=== PATIENT | female | born 1980 | race Hispanic/Latino ===

== ENCOUNTER 2017-06-22 14:36 | Emergency (ER) | payer OTHER ==
--- NOTE | 2017-06-22 16:54 | Emergency Department Report ---
Chief Complaint: Urogenital-Female Stated Complaint: VAGINAL PAIN Time Seen by Provider: 06/22/17 16:37 - HPI History of Present Illness: Patient is a 37-year-old female who is presenting with dysuria vaginal discharge urinary frequency and a foul odor to her urine has been present for the past 3 days. Patient has mild pelvic pain. Patient denies any fever nausea vomiting at this time. Patient states the pain is probably a 4 out of 10 and crampy - ROS Review of Systems: Review of systems is negative except for those elements in HPI - Exam Vital Signs: Vital Signs 06/22/17 14:41 Temperature 97.7 F Pulse Rate 106 H Respiratory 18 Rate Blood Pressure 111/73 O2 Sat by Pulse 97 Oximetry Physical Exam: Focused physical exam shows some mild suprapubic tenderness MSE screening note: Focused history and physical exam performed. Due to findings the following was ordered: Pelvic exam will be performed a urinalysis and test will be done as well ED Disposition for MSE Condition: Stable Referrals: JASON RODRIGUEZ MD [Primary Care Provider] - 3-5 Days
[2017-06-22] MEDS ORDERED: ZOFRAN ODT PO ONE (17:58)
[2017-06-22] MEDS ORDERED: NORCO 5/325 PO ONE (17:58)
[2017-06-22 18:08] LABS: Bilirubin,Urine NEG (Negative); Blood,Urine NEG (Negative); Ketones,Urine NEG (Negative); Leukocyte Esterase,Urine LG (Negative); Mucus,Urine FEW /HPF; Nitrite,Urine NEG (Negative); Protein,Urine <15 mg/dL mg/dL (Negative); Urobilinogen,Urine < 2.0 mg/dL (<2.0)
--- NOTE | 2017-06-22 18:19 | Emergency Department Report ---
ED Female HPI - General Chief complaint: Urogenital-Female Stated complaint: VAGINAL PAIN Time Seen by Provider: 06/22/17 16:37 Source: patient Mode of arrival: Ambulatory Limitations: No Limitations - History of Present Illness Initial comments: Patient is a 37-year-old male presents to ED with her INR complaining of vaginal pain along with vaginal discharge for the past 3 days. Patient states she has been sexually active with her partner without protection. Patient states vaginal discharge is noted of very foul odor. She also admits dysuria. She denies vaginal bleeding, itching or irritation. She admits history of ovarian cysts and states to get a partial hysterectomy years ago MD Complaint: vaginal discharge, pelvic pain -: days(s) - Related Data Previous Rx's Medication Instructions Recorded Last Taken Type Cephalexin [Keflex] 500 mg PO QID #40 capsule 04/18/14 Unknown Rx Sulfamethoxazole/Trimethoprim 1 each PO BID #20 tablet 04/18/14 Unknown Rx [Bactrim Ds] traMADol [Ultram 50 MG tab] 50 mg PO Q4HR PRN #20 tablet 04/18/14 Unknown Rx Allergies Allergy/AdvReac Type Severity Reaction Status Date / Time aspirin Allergy Bleeding Verified 04/18/14 13:12 ED Review of Systems ROS: Stated complaint: VAGINAL PAIN Other details as noted in HPI Constitutional: denies: chills, fever Eyes: denies: eye pain, eye discharge, vision change ENT: denies: ear pain, throat pain Respiratory: denies: cough, shortness of breath, wheezing Cardiovascular: denies: chest pain, palpitations Endocrine: no symptoms reported Gastrointestinal: nausea. denies: abdominal pain, vomiting, diarrhea Genitourinary: dysuria, discharge. denies: urgency, frequency, hematuria Musculoskeletal: denies: back pain, joint swelling, arthralgia Skin: denies: rash, lesions Neurological: denies: headache, weakness, paresthesias Psychiatric: denies: anxiety, depression Hematological/Lymphatic: denies: easy bleeding, easy bruising ED Past Medical Hx - Past Medical History Additional medical history: chronic back pain - Surgical History Additional Surgical History: . partial hysterectomy - Social History Smoking Status: Current Every Day Smoker Substance Use Type: None - Medications Home Medications: Home Medications Medication Instructions Recorded Confirmed Last Taken Type Cephalexin [Keflex] 500 mg PO QID #40 capsule 04/18/14 Unknown Rx Sulfamethoxazole/Trimethoprim 1 each PO BID #20 tablet 04/18/14 Unknown Rx [Bactrim Ds] traMADol [Ultram 50 MG tab] 50 mg PO Q4HR PRN #20 tablet 04/18/14 Unknown Rx ED Physical Exam - General Limitations: No Limitations General appearance: alert, in no apparent distress - Head Head exam: Present: atraumatic, normocephalic - Eye Eye exam: Present: normal appearance - ENT ENT exam: Present: mucous membranes moist - Neck Neck exam: Present: normal inspection - Respiratory Respiratory exam: Present: normal lung sounds bilaterally. Absent: respiratory distress - Cardiovascular Cardiovascular Exam: Present: regular rate, normal rhythm. Absent: systolic murmur, diastolic murmur, rubs, gallop - GI/Abdominal GI/Abdominal exam: Present: soft, normal bowel sounds - External exam: Present: normal external exam. Absent: erythema, swelling, lesions Speculum exam: Present: vaginal discharge, other (no cervix visualized.) Bi-manual exam: Present: cervical motion tendernes, adnexal tenderness - Extremities Exam Extremities exam: Present: normal inspection - Back Exam Back exam: Present: normal inspection - Neurological Exam Neurological exam: Present: alert, oriented X3 - Psychiatric Psychiatric exam: Present: normal affect, normal mood - Skin Skin exam: Present: warm, dry, intact, normal color. Absent: rash ED Course Vital Signs 06/22/17 06/22/17 06/22/17 14:41 18:05 19:23 Temperature 97.7 F 98 F Pulse Rate 106 H 90 Respiratory 18 18 18 Rate Blood Pressure 111/73 Blood Pressure 116/70 [Left] O2 Sat by Pulse 97 100 Oximetry ED Medical Decision Making - Medical Decision Making 37-year-old female presents with STD . ED course: urinalysis and gonorrhea and Chlamydia cultures obtained. Urinalysis positive for leukorrhea, wet prep positive for trichomoniasis Patient received 250 mg of Rocephin, azithromycin 1 g, Flagyl 2 g. Discussed with patient STD due to exposure. Discussed with patient findings and treatment Discussed prophylaxis treatment patient is to abstain from sex 7-10 days as treatment. Discussed patient partner knowledge and treatment. Discussed the follow-up with the health department for further STD testing. Patient's alert and oriented times 3. Vital signs are normal patient is in no acute discharge. Patient will be discharged home with instructions. She states she understands instructions. Critical care attestation.: If time is entered above; I have spent that time in minutes in the direct care of this critically ill patient, excluding procedure time. ED Disposition Clinical Impression: STD (sexually transmitted disease), Trichomonal infection Disposition: TO HOME OR SELFCARE Is pt being admited?: No Does the pt Need Aspirin: No Condition: Stable Instructions: Sexually Transmitted Diseases (ED), Safe Sex (ED), Trichomoniasis (ED) Additional Instructions: Make sure to follow up with the primary care physician as discussed. Take all your medications as you've been prescribed. If you have any worsening symptoms or develop new symptoms please return to ED immediately. Referrals: JASON RODRIGUEZ MD [Primary Care Provider] - 3-5 Days JEANA NICOLE MD [Referring] - 3-5 Days [facility] [Outside] - 3-5 Days [facility] [Outside] - 3-[address] [facility] [Outside] - 3-5 Days Forms: Work/School Release Form(ED) Time of Disposition: 18:24
[2017-06-22] MEDS ORDERED: XYLOCAINE 1% MPF 5 mL INFILTRATI ONE (18:23)
[2017-06-22] MEDS ORDERED: FLAGYL PO ONE (18:23)
[2017-06-22] MEDS ORDERED: ROCEPHIN IM ONE (18:23)
[2017-06-22] MEDS ORDERED: ZITHROMAX PO ONE (18:23)
[2017-06-22 19:24] VITALS: BP 116/70
== END 2017-06-22 19:24 | disposition home or self-care (01) ==
LOC: ED 14:36
DX: A59.9 Trichomoniasis, unspecified (principal); F17.200 Nicotine dependence, unspecified, uncomplicated; Z88.6 Allergy status to analgesic agent
CPT/HCPCS: 81001; 81025; 87210; 87591; 96372; 99283; J0696; Q0162

== ENCOUNTER 2017-08-09 10:59 | Emergency (ER) | payer SELFPAY ==
[2017-08-09 11:11] VITALS: BP 121/68
[2017-08-09 12:56] LABS: Bilirubin,Urine NEG (Negative); Blood,Urine SM (Negative); Color,Urine Yellow (Yellow); Mucus,Urine FEW /HPF; Nitrite,Urine NEG (Negative); Protein,Urine <15 mg/dL mg/dL (Negative); Urobilinogen,Urine < 2.0 mg/dL (<2.0)
== END 2017-08-09 15:35 | disposition left against medical advice (07) ==
LOC: ED 10:59
DX: Z11.3 Encounter for screening for infections with a predominantly sexual mode of transmission (principal); Z53.21 Procedure and treatment not carried out due to patient leaving prior to being seen by health care provider
CPT/HCPCS: 81001

== ENCOUNTER 2017-09-18 13:35 | Emergency (ER) | payer SELFPAY ==
[2017-09-18] MEDS ORDERED: BENADRYL IV ONE (17:53)
[2017-09-18] MEDS ORDERED: NACL 0.9% 1000 ML 1,000 ML IV ONE (17:53)
[2017-09-18] MEDS ORDERED: REGLAN IV ONE (17:54)
[2017-09-18] MEDS ORDERED: MORPHINE IV ONE (17:54)
--- NOTE | 2017-09-18 17:56 | Emergency Department Report ---
Chief Complaint: Abdominal Pain Stated Complaint: OVARY PAIN Time Seen by Provider: 09/18/17 17:49 - HPI History of Present Illness: Patient is a 37-year-old female with a history of hysterectomy, presents for evaluation of abdominal pain and headache. The patient reports 3 days of right lower abdominal pain, crampy in quality, consistent with previous ovarian cyst. She also reports 1 week of on and off headache, moderate in severity. The patient denies fever, head injury, neck pain, neck stiffness, vision or hearing changes, smell or taste changes, paresthesias, facial drooping, slurred speech, seizure-like activity, urine or bowel incontinence or retention, dysuria, vaginal discharge, vaginal bleeding or other focal neurological deficit. - Exam Vital Signs: Vital Signs 09/18/17 14:01 Temperature 98.4 F Pulse Rate 113 H Respiratory 18 Rate Blood Pressure 128/75 O2 Sat by Pulse 99 Oximetry MSE screening note: Focused history and physical exam performed. Due to findings the following was ordered: ED Disposition for MSE Condition: Stable Instructions: Abdominal Pain (ED)
[2017-09-18 18:12] LABS: Basophils # (Auto) 0.1 K/mm3 (0.0-0.1); Basophils % (Auto) 1.3 % (0.0-1.8); Eosinophils # (Auto) 0.2 K/mm3 (0.0-0.4); Eosinophils % (Auto) 2.9 % (0.0-4.3); Hematocrit 45.6 % (30.3-42.9); Hemoglobin 15.8 gm/dl (10.1-14.3); Lymphocytes # (Auto) 3.4 K/mm3 (1.2-5.4); Lymphocytes % (Auto) 39.9 % (13.4-35.0); Mean Corpuscular HGB Conc 35 % (30-34); Mean Corpuscular Hemoglobin 33 pg (28-32); Mean Corpuscular Volume 94 fl (79-97); Monocytes # (Auto) 0.7 K/mm3 (0.0-0.8); Monocytes % (Auto) 8.6 % (0.0-7.3); Platelet Count 319 K/mm3 (140-440); Red Blood Count 4.84 M/mm3 (3.65-5.03); Red Cell Distribution Width 13.9 % (13.2-15.2)
[2017-09-18 18:21] LABS: BUN/Creatinine Ratio 22; Blood Urea Nitrogen 13 mg/dL (7-17); Calcium 9.1 mg/dL (8.4-10.2); Hemolysis Index 86
[2017-09-18 18:41] LABS: Bacteria,Urine 1+ /HPF (Negative); Bilirubin,Urine NEG (Negative); Blood,Urine NEG (Negative); Color,Urine Yellow (Yellow); Mucus,Urine FEW /HPF; Protein,Urine <15 mg/dL mg/dL (Negative)
--- NOTE | 2017-09-18 20:33 | Emergency Department Report ---
HPI - General Chief Complaint: Abdominal Pain Time Seen by Provider: 09/18/17 17:49 - HPI HPI: Patient is a 37-year-old female who presents to ED with a history of ovarian cysts/hysterectomy and presents complaining of low pelvic pain for the past couple days. Patient states she has had intermittent pain in the past. Patient states she has known about her ovaries and needs Surgery to have them taken out but she is having issues with her insurance that she has not been able to follow [employer]. Patient also, of moderate intermittent frontal lobe aching/ throbbing headache. She denies any trauma, blurry vision, chest pain, shortness of breath, nausea or vomiting. She denies any vaginal bleeding, vaginal discharge. She denies any trauma, head injuries. ED Past Medical Hx - Past Medical History Hx Headaches / Migraines: Yes Additional medical history: chronic back pain,. Ovarian cyst - Surgical History Additional Surgical History: . partial hysterectomy - Social History Smoking Status: Never Smoker Substance Use Type: None - Medications Home Medications: Home Medications Medication Instructions Recorded Confirmed Last Taken Type Cephalexin [Keflex] 500 mg PO QID #40 capsule 04/18/14 Unknown Rx Butalb/Acetamin/Caff 50-325-40 1 tab PO Q8HR PRN #30 tablet 09/18/17 Unknown Rx [Fioricet] Sulfamethoxazole/Trimethoprim 1 each PO BID #20 tablet 09/18/17 Unknown Rx [Bactrim DS TAB] traMADol [Ultram 50 MG tab] 50 mg PO Q6HR PRN #20 tablet 09/18/17 Unknown Rx ED Review of Systems ROS: Stated complaint: OVARY PAIN Other details as noted in HPI Constitutional: denies: chills, fever Eyes: denies: eye pain, eye discharge, vision change ENT: denies: ear pain, throat pain Respiratory: denies: cough, shortness of breath, wheezing Cardiovascular: denies: chest pain, palpitations Endocrine: no symptoms reported Gastrointestinal: nausea. denies: abdominal pain, vomiting, diarrhea Genitourinary: denies: urgency, dysuria, discharge Musculoskeletal: denies: back pain, joint swelling, arthralgia Skin: denies: rash, lesions, pruritus Neurological: headache. denies: weakness, numbness, paresthesias, confusion Psychiatric: denies: anxiety, depression Hematological/Lymphatic: denies: easy bleeding, easy bruising Physical Exam - Physical Exam Vital Signs: Vital Signs 09/18/17 09/18/17 14:01 18:16 Temperature 98.4 F Pulse Rate 113 H Respiratory 18 16 Rate Blood Pressure 128/75 O2 Sat by Pulse 99 Oximetry Physical Exam: GENERAL: Alert and oriented x3, no apparent distress, Normal Gait, atraumatic. HEAD: Head is normocephalic and a-traumatic. EYES: Extra ocular muscles are intact. Pupils are equal, round, and reactive to light and accommodation. LUNGS: Symetrical with respiration, No wheezing, no rales or crackles, CTAB. HEART: S1, S2 present, regular rate and rhythm without murmur, no rubs, no gallops. Non tender to palpation ABDOMEN: No organomegaly was noted,Positive bowel sounds, soft, and non- distended. . Nontender to palpation on all Quadrants, NO CVA tenderness. BACK: Full range of motion, no spinal tenderness, nontender to palpation. NEUROLOGIC: The patient is cooperative with no focal neurologic deficit. Normal speech. Normal sensation in bilateral upper and lower extremities, No loss of sensation, . SKIN: Warm and dry, No lesions, No ulceration or induration present. ED Course Vital Signs 09/18/17 09/18/17 14:01 18:16 Temperature 98.4 F Pulse Rate 113 H Respiratory 18 16 Rate Blood Pressure 128/75 O2 Sat by Pulse 99 Oximetry ED Medical Decision Making - Lab Data Result diagrams: 09/18/17 17:58 09/18/17 17:58 Laboratory Last Values WBC 8.6 K/mm3 (4.5-11.0) 09/18/17 17:58 RBC 4.84 M/mm3 (3.65-5.03) 09/18/17 17:58 Hgb 15.8 gm/dl (10.1-14.3) H 09/18/17 17:58 Hct 45.6 % (30.3-42.9) H 09/18/17 17:58 MCV 94 fl (79-97) 09/18/17 17:58 MCH 33 pg (28-32) H 09/18/17 17:58 MCHC 35 % (30-34) H 09/18/17 17:58 RDW 13.9 % (13.2-15.2) 03/12/18 17:58 Plt Count 319 K/mm3 (140-440) 09/18/17 17:58 Lymph % (Auto) 39.9 % (13.4-35.0) H 09/18/17 17:58 [place] % (Auto) 8.6 % (0.0-7.3) H 09/18/17 17:58 Eos % (Auto) 2.9 % (0.0-4.3) 09/18/17 17:58 Baso % (Auto) 1.3 % (0.0-1.8) 09/18/17 17:58 Lymph # 3.4 K/mm3 (1.2-5.4) 09/18/17 17:58 Stevens # 0.7 K/mm3 (0.0-0.8) 09/18/17 17:58 Eos # 0.2 K/mm3 (0.0-0.4) 09/18/17 17:58 Baso # 0.1 K/mm3 (0.0-0.1) 09/18/17 17:58 Seg Neutrophils % 47.3 % (40.0-70.0) 09/18/17 17:58 Seg Neutrophils # 4.1 K/mm3 (1.8-7.7) 09/18/17 17:58 Sodium 137 mmol/L (137-145) 09/18/17 17:58 Potassium 4.3 mmol/L (3.6-5.0) 09/18/17 17:58 Chloride 99.6 mmol/L (98-107) 09/18/17 17:58 Carbon Dioxide 23 mmol/L (22-30) 09/18/17 17:58 Anion Gap 19 mmol/L 09/18/17 17:58 BUN 13 mg/dL (7-17) 09/18/17 17:58 Creatinine 0.6 mg/dL (0.7-1.2) L 09/18/17 17:58 Estimated GFR > 60 ml/min 09/18/17 17:58 BUN/Creatinine Ratio 22 % 09/18/17 17:58 Glucose 87 mg/dL (65-100) 09/18/17 17:58 Calcium 9.1 mg/dL (8.4-10.2) 09/18/17 17:58 Urine Color Yellow (Yellow) 03/12/18 18:18 Urine Turbidity Clear (Clear) 09/18/17 18:18 Urine pH 5.0 (5.0-7.0) 09/18/17 18:18 Ur Specific [place] 1.021 (1.003-1.030) 09/18/17 18:18 Urine Protein <15 mg/dl mg/dL (Negative) 09/18/17 18:18 Urine Glucose (UA) Neg mg/dL (Negative) 09/18/17 18:18 Urine Ketones Tr mg/dL (Negative) 09/18/17 18:18 Urine Blood Neg (Negative) 09/18/17 18:18 Urine Nitrite Neg (Negative) 09/18/17 18:18 Urine Bilirubin Neg (Negative) 09/18/17 18:18 Urine Urobilinogen 2.0 mg/dL (<2.0) 09/18/17 18:18 Ur Leukocyte Esterase Neg (Negative) 09/18/17 18:18 Urine WBC (Auto) 4.0 /HPF (0.0-6.0) 09/18/17 18:18 Urine RBC (Auto) 4.0 /HPF (0.0-6.0) 09/18/17 18:18 U Epithel Cells (Auto) 4.0 /HPF (0-13.0) 09/18/17 18:18 Urine Bacteria (Auto) 1+ /HPF (Negative) 09/18/17 18:18 Urine Mucus Few /HPF 09/18/17 18:18 - Medical Decision Making 37-year-old female presents with urinary tract infection/chronic pelvic pain ED course: She received 1 L of normal saline, morphine for pain, Benadryl. Patient reports feeling much better. Patient states she needs is follow up with her [employer]. I discussed with her that I'll give her a referral for [employer]ist to follow-up with. Patient was sent home on tramadol for pain, antibiotics to treat UTI. Vital signs are normalized. Patient is in no acute respiratory distress. She is surgically stable has no neuro deficits. Critical care attestation.: If time is entered above; I have spent that time in minutes in the direct care of this critically ill patient, excluding procedure time. ED Disposition Clinical Impression: UTI (urinary tract infection) Qualifiers: Urinary tract infection type: acute cystitis Hematuria presence: without hematuria Qualified Code(s): N30.00 - Acute cystitis without hematuria Migraine headache Qualifiers: Migraine type: without aura Status migrainosus presence: without status migrainosus Intractability: not intractable Qualified Code(s): G43.009 - Migraine without aura, not intractable, without status migrainosus Disposition: DC- TO HOME OR SELFCARE Is pt being admited?: No Does the pt Need Aspirin: No Condition: Stable Instructions: Abdominal Pain (ED), Ovarian Cyst (ED), Chronic Pelvic Pain in Women (ED), Urinary Tract Infection in Women (ED), Migraine Headache (ED), Acute Headache (ED) Additional Instructions: Make sure to follow up with the [employer] as discussed. Take all your medications as you've been prescribed. If you have any worsening symptoms or develop new symptoms please return to ED immediately. Prescriptions: Butalb/Acetamin/Caff 50-325-40 [Fioricet] 1 tab PO Q8HR PRN #30 tablet PRN Reason: Headache Sulfamethoxazole/Trimethoprim [Bactrim DS TAB] 1 each PO BID #20 tablet traMADol [Ultram 50 MG tab] 50 mg PO Q6HR PRN #20 tablet PRN Reason: Pain Referrals: PRIMARY CAREMD [Primary Care Provider] - 3-5 Days JEANA NICOLE MD [Referring] - 3-5 Days [facility] [Outside] - 3-5 Days [facility] [Outside] - 3-5 Days [facility] [Outside] - 3-5 Days Forms: Work/School Release Form(ED), Accompanied Note Time of Disposition: 20:37
[2017-09-18 21:19] VITALS: BP 122/63
== END 2017-09-18 21:15 | disposition home or self-care (01) ==
LOC: ED 13:35
DX: N39.0 Urinary tract infection, site not specified (principal); G43.909 Migraine, unspecified, not intractable, without status migrainosus
CPT/HCPCS: 36415; 80048; 81001; 85025; 96361; 96374; 96375; 99283; J1200; J2270; J2765; J7030